=== PATIENT | male | born 1995 | race Caucasian/White ===

== ENCOUNTER 2018-09-15 12:12 | Emergency (ER) | payer BC ==
--- NOTE | 2018-09-15 13:31 | UC ---
Respiratory Complaint HPI - HPI Summary HPI Summary: 23 y/o male presents to the urgent care c/o nasal congestion, w/ yellowish nasal discharge for the past 3 days. Pt also has a productive cough w/ a yellowish phlegm and SOB w/ wheezing since yesterday. Pt has taken Dayquill PO to alleviate symptoms w/o any improvement. Pt had an episode of vomiting last night due to cough. Pt denies fever, but has had chills and body aches w/ a AVERY. Pt also denies chest pain, abdominal pain, N/V/D. - History of Current Complaint Chief Complaint: UCRespiratory Stated Complaint: COUGH HEADACHE VOMITING SOB Time Seen by Provider: 09/15/18 13:30 Hx Obtained From: Patient Onset/Duration: Gradual Onset, Lasting Days - 3 days, Still Present, Worse Since - yesterday Timing: Intermittent Episodes Severity Initially: Mild Severity Currently: Moderate Pain Intensity: 8 Pain Scale Used: 0-10 Numeric Character: Cough: Productive, Sputum Description: - yellowish Aggravating Factors: Recumbent Position Alleviating Factors: OTC Meds Associated Signs And Symptoms: Positive: Fever, Chills, Wheezing, URI, Nasal Congestion, Sinus Discomfort - Risk Factors Pulmonary Embolism Risk Factors: Negative Cardiac Risk Factors: Negative Pseudomonas Risk Factors: Negative Tuberculosis Risk Factors: Negative - Allergies/Home Medications Allergies/Adverse Reactions: Allergies Allergy/AdvReac Type Severity Reaction Status Date / Time amoxicillin Allergy Rash Verified 09/15/18 12:25 PMH/Surg Hx/FS Hx/Imm Hx Previously Healthy: Yes - Pt denies PMHX - Surgical History Surgical History: None - Family History Known Family History: Positive: None - Pt denies FMHX - Social History Occupation: Employed Full-time Lives: With Family Alcohol Use: Occasionally Substance Use Type: None Smoking Status (MU): Never Smoked Tobacco Review of Systems All Other Systems Reviewed And Are Negative: Yes Constitutional: Positive: Chills, Fatigue, Other - body aches Skin: Positive: Negative Eyes: Positive: Negative ENT: Positive: Nasal Discharge - yellowish, Sinus Congestion Respiratory: Positive: Shortness Of Breath, Cough - productive, Other - wheezing Cardiovascular: Positive: Negative Gastrointestinal: Positive: Negative Genitourinary: Positive: Negative Motor: Positive: Negative Neurovascular: Positive: Negative Musculoskeletal: Positive: Myalgia Neurological: Positive: Headache Psychological: Positive: Negative Is Patient Immunocompromised?: No Physical Exam - Summary Physical Exam Summary: Vital Signs Reviewed: Yes General: well developed, well nourished male sitting in the examining table w/o any apparent distress Eyes: Positive: Conjunctiva Clear - PERRLA, EOMI, fundi grossly normal ENT: Positive: Normal ENT inspection, Hearing grossly normal, Pharynx normal, Nasal congestion - edematous and erythematous nasal mucosa, Nasal drainage - yellowish drainage, TMs normal. Negative: Tonsillar swelling, Tonsillar exudate Neck: Positive: Supple, Nontender, No Lymphadenopathy Respiratory: no orthopnea or dyspnea. Able to speak in full sentences, no retractions or accessory muscle use, no tripod position, stridor, or head bobbing. Positive breath sounds bilaterally. diffuse scattered wheezing and rhonchi on b/L lungs, no crackles or rales. Cardiovascular: Positive: RRR, No Murmur, Pulses Normal, Brisk Capillary Refill Abdomen Description: Positive: Nontender, No Organomegaly, Soft. Negative: CVA Tenderness (R), CVA Tenderness (L) Bowel Sounds: Positive: Present Musculoskeletal Exam: Normal Musculoskeletal: Positive: Strength Intact, ROM Intact, No Edema Neurological Exam: Normal Psychological Exam: Normal Skin Exam: Normal Triage Information Reviewed: Yes Vital Signs: Initial Vital Signs Temp 99 F 09/15/18 12:22 Pulse 80 09/15/18 12:22 Resp 18 09/15/18 12:22 BP 127/74 09/15/18 12:22 Pulse Ox 97 09/15/18 12:22 Diagnostic Evaluation - Laboratory O2 Sat by Pulse Oximetry: 97 Respiratory Course/Dx - Course Course Of Treatment: 23 y/o male presents to the urgent care c/o nasal congestion, w/ yellowish nasal discharge for the past 3 days. Pt also has a productive cough w/ a yellowish phlegm and SOB w/ wheezing since yesterday. Pt has taken Dayquill PO to alleviate symptoms w/o any improvement. Pt had an episode of vomiting last night due to cough. Pt denies fever, but has had chills and body aches w/ a AVERY. Pt also denies chest pain, abdominal pain, N/V/ D. Hx obtained. Pt with b/L lungs w/ scattered rhonchi and wheezing on examination. Chest X-ray ordered to r/o pneumonia. Impression: patchy multifocal consolidation. Influenxa A&B ordered: negative. I discussed all the findings and test results with the patient. Pt's is PCN allergic. Pt given Prednisone PO and Duoneb treatment. pt tolerated well medications and lungs improved, Still scattered wheezing in the LF lung. O2Sat:100%. Pt's symptoms disccused w/ Dr Calhoun and she recommended Levaquin PO and f/u w/ PCP in 2-3 days to see if symptoms are improving. Pt given Levaquin PO 750mg PO at the clinic by nurse. Pt Rx Levaquin PO, PrednisonePO and albuterol Inhaler as directed below. Pt advised if worsening symptoms to immediately go to the ER for further management. Also to f/u w/ his PCP in 2-3 days to make sure symptoms were improving. Plan of care was discussed with the patient. He understands and agreed w/ D/c instructions. All questions were answered at patient satisfaction. There were no further complaints or concerns. Pt left the clinic hemodynamically stable, A&OX3 and ambulating. - Differential Dx/Diagnosis Differential Diagnosis/HQI/PQRI: Asthma, Bronchitis, Influenza, Laryngitis, Lower Resp Infection, Sinusitis, Other - pneumonia Provider Diagnoses: 1- Community accquire pneumonia. 2-Wheezing Discharge - Sign-Out/Discharge Documenting (check all that apply): Patient Departure - D/C home All imaging exams completed and their final reports reviewed: Yes - Discharge Plan Condition: Stable Disposition: HOME Prescriptions: Albuterol HFA INHALER* [Ventolin HFA Inhaler*] 1 - 2 puff INH Q4H PRN #1 mdi PRN Reason: Wheezing Levofloxacin TAB* [Levaquin TAB*] 750 mg PO DAILY #6 tab predniSONE TAB* [Deltasone 20 MG TAB*] 20 mg PO DAILY #8 tab Patient Education Materials: Community Acquired Pneumonia (ED), Wheezing (ED) Forms: *School Release Referrals: [facility] [place] [facility]ERR[facility] [Outside] - 3 Days Additional Instructions: 1-Please take full course of antibiotic to avoid resistance. Starting tomorrow. First dose given today 2-Take Robitussin PO or Delsym PO as directed to alleviate cough and use the albuterol inhaler to alleviate wheezing. Increase fluid intake, rest and eat well. Avoid strenuous exercise 3- If symptoms do not improve or worsen or your develop SOB with fever and severe cough please go immediately to the ER further evaluation and treatment. 4-See your PCP in 2-3 days to check your symptoms are improving. - Billing Disposition and Condition Condition: STABLE Disposition: Home
[2018-09-15] MEDS ORDERED: predniSONE TAB* 20 MG PO ONE (13:39)
[2018-09-15] MEDS ORDERED: Albuterol 2.5 MG/3 ML NEB.SOL* (0.083%) INH ONE (13:39)
[2018-09-15] MEDS ORDERED: Levofloxacin TAB* 250 MG PO ONE (14:46)
[2018-09-15] MEDS ORDERED: Levofloxacin TAB* 500 MG PO ONE (14:46)
== END 2018-09-15 15:26 | disposition home or self-care (01) ==
LOC: UCEAST 12:12
DX: J18.9 Pneumonia, unspecified organism (principal); R06.2 Wheezing; Z88.0 Allergy status to penicillin
CPT/HCPCS: 71046; 99202; A9270-GY; G0463; J7512